=== PATIENT | female | born 2005 | race Caucasian/White ===

== ENCOUNTER 2023-09-14 00:59 | Emergency (ER) | payer BC ==
[~2023-09-14] VITALS: Ht 165.1 cm; Wt 102.0 kg
[2023-09-14 01:08] VITALS: BP 130/92; PULSE 101; RESP 16; TEMP 97.9; O2SAT 98
[2023-09-14] MEDS: DEXAMETHASONE 10 MG/ML VIAL IM ONE (01:45)
== END 2023-09-14 02:48 | disposition home or self-care (01) ==
LOC: ER 00:59
DX: J02.9 Acute pharyngitis, unspecified (principal)
CPT/HCPCS: 87430; 87070; 96372; 99283; J1100; Z7610

== ENCOUNTER 2023-12-31 16:40 | Emergency (ER) | payer BC ==
[~2023-12-31] VITALS: Ht 165.1 cm; Wt 95.3 kg
[2023-12-31 16:59] VITALS: O2SAT 98
[2023-12-31] MEDS: IBUPROFEN 600MG TABLET PO ONE (18:19)
[2023-12-31] MEDS ORDERED: IBUP-2029 MT (18:20)
[2023-12-31 18:21] VITALS: BP 141/97; PULSE 97; RESP 18; TEMP 37.11408; O2SAT 98
== END 2023-12-31 18:29 | disposition home or self-care (01) ==
LOC: ER 16:40
DX: S93.402A Sprain of unspecified ligament of left ankle, initial encounter (principal); E11.9 Type 2 diabetes mellitus without complications; W18.30XA Fall on same level, unspecified, initial encounter; Y93.89 Activity, other specified; Y92.89 Other specified places as the place of occurrence of the external cause; Y99.8 Other external cause status
CPT/HCPCS: 73600; 73620; 99284